=== PATIENT | male | born 1980 | race Caucasian/White ===

== ENCOUNTER 2018-03-30 20:23 | Emergency (ER) | payer MEDICAID ==
[~2018-03-30] VITALS: Ht 177.8 cm; Wt 65.8 kg
[~2018-03-30 20:23] MED LIST: CODACE30 PO; CRUTCH2 USE; HYDACE5 PO; IBUP600 PO; NAPR500 PO; OXYACE5T PO; PENVK250 PO; Percocet 5-3251 EACH PO; RXNAPNA550 PO; RXOXYACE PO; RXTOBROPSO OP
[2018-03-30] MEDS ORDERED: Bactrim Ds Tab1 EACH PO (21:11)
== END 2018-03-30 21:18 | disposition home or self-care (01) ==
LOC: ER 20:23
DX: H60.01 Abscess of right external ear (principal); F17.200 Nicotine dependence, unspecified, uncomplicated; Z88.5 Allergy status to narcotic agent
CPT/HCPCS: 10060; 99282-25

== ENCOUNTER 2019-06-21 18:23 | Emergency (ER) | payer SELFPAY ==
[~2019-06-21] VITALS: Ht 177.8 cm; Wt 68.0 kg
[~2019-06-21 18:23] MED LIST changes: +Bactrim Ds Tab1 EACH PO; +KETO10 PO
[2019-06-22] MEDS ORDERED: Cephalexin500 MG PO (09:17)
[2019-06-22] MEDS ORDERED: IBUP400 PO (09:17)
== END 2019-06-21 19:45 | disposition left against medical advice (07) ==
LOC: ER 18:23
DX: Z53.21 Procedure and treatment not carried out due to patient leaving prior to being seen by health care provider (principal)